=== PATIENT | female | born 1965 | race Caucasian/White ===

== ENCOUNTER → 2019-04-07 09:45 | Outpatient (BNVA) | payer OTHER, SELFPAY | PROVIDERS: Family Provider Family Medicine; PCP Family Medicine; Visit Provider Family Medicine | DX: Z01.419 Encounter for gynecological examination (general) (routine) without abnormal findings (principal); Z12.31 Encounter for screening mammogram for malignant neoplasm of breast | CPT/HCPCS: 88175 ==

== ENCOUNTER 2019-05-05 07:59 | Day surgery (SDC) | payer OTHER, SELFPAY ==
[2019-05-04 13:46] VITALS: BMI 18.8
[2019-05-05 08:28] VITALS: BP 117/76; PULSE 87; RESP 16; TEMP 37.2; O2SAT 100
--- NOTE | 2019-05-05 08:32 | ANES.PREANE2 ---
Pre-Anesthetic Assessment Pre-Anesthetic Assessment: Height/Weight: Height 1.55 m Weight 45.388 kg Temp Pulse Resp BP Pulse Ox 98.9 F 87 16 117/76 100 05/05/19 08:28 05/05/19 08:28 05/05/19 08:28 05/05/19 08:28 05/05/19 08:28 Preop Diagnosis: screening Proposed Procedure: Operation Date: 05/05/19 09:00 Proposed Procedures p Colonoscopy(Not Applicable) - Kevin Galaviz MD Was Beta Chava taken within 24 hours: N/A Last intake: Intake Last Liquid Date 05/04/19 Last Liquid Time 21:00 Last Solid Date 05/03/19 Last Solid Time 16:00 Last Intake: 21:00 Social: Social History: No alcohol and No tobacco Exam: Pre-Anes Outpt Exam: alert, oriented x 3, clear to auscultation bilaterally and regular rate & rhythm Airway: Submandibular: WNL Cervical ROM: WNL MP: 1 Pulmonary: Pulmonary: None reported CV/HEM: CV/HEM: None reported : : None reported Hepatic: Hepatic: None reported GI: GI: GERD Metabolic: Metabolic: None reported Comments: LMP 10 yrs ago Musc/skel: Musc/skel: None reported Neuropsych: Neuropsych: None reported Anesthetic Plan: ASA status: 2 Anesthesia: Anesthesia Evaluation and MAC Risk of > 500 ml blood loss (7ml/kg in children): No PFSH Anesthesia PFSH: Social History (Updated 04/27/19 @ 14:28 by LEIGHA Leslie) Smoking and tobacco status: never smoked Alcohol intake: never History of recent travel: No Data Anesthesia Cardiac Studies: No Data to Display
[2019-05-05] MEDS: sodium chloride 0.9% 1,000 ML 30 ML (08:33)
--- NOTE | 2019-05-05 09:02 | W.PM.OPSUD ---
Surgery/Procedure H&P Update DATE OF PROCEDURE: May 05, 2019 DATE H&P PERFORMED: 04/27/19 PREOP DIAGNOSIS: screening PLANNED PROCEDURE: Operation Date: 05/05/19 09:00 Proposed Procedures p Colonoscopy(Not Applicable) - Kevin Galaviz MD
[2019-05-05 09:28] VITALS: BP 101/70; PULSE 85; RESP 16; TEMP 37.2; O2SAT 99
[2019-05-05 09:37] VITALS: BP 102/67; PULSE 98; RESP 18; O2SAT 100
--- NOTE | 2019-05-05 09:39 | ANE.PACU2 ---
 Inpatient post-anesthesia follow up: Airway intact: Yes Vital signs: Temperature 98.9 F Pulse Rate 98 Respiratory Rate 18 Blood Pressure 102/67 Pulse Oximetry 100 Oxygen Delivery Me thod Room Air Oxygen Flow Rate 3 Fraction of Inspir ed Oxygen Hydration adequate: Yes Nausea and vomiting: No Pain level: 1 Mental status: Baseline
== END 2019-05-05 09:51 | disposition home or self-care (01) ==
PROVIDERS: Family Provider Family Medicine; PCP Family Medicine; Visit Provider Internal Medicine
PROC: 0DJD8ZZ Inspection of Lower Intestinal Tract, Via Natural or Artificial Opening Endoscopic (ICD-10-PCS; CPT 45378; principal; 2019-05-05 09:00)
DX: Z12.11 Encounter for screening for malignant neoplasm of colon (principal); K21.9 Gastro-esophageal reflux disease without esophagitis
CPT/HCPCS: 12345; 45378; J2704; J7030

== ENCOUNTER 2019-08-03 15:32 | Outpatient (CLI) | payer OTHER, SELFPAY ==
--- NOTE | 2019-08-03 15:30 | MM_ITS ---
WS: [id number] SCREENING DIGITAL MAMMOGRAM WITH CAD HISTORY: screening mammogram COMPARISON: 05/08/2016 and 04/04/2015 Bilateral CC and MLO views submitted. Computer aided detection analyzed. Breast composition: The breasts are heterogeneously dense, which may obscure small masses. Irregular asymmetry in the posterior lateral LEFT breast measures 15 mm. On the lateral projection this is prob ably in the upper portion of the breast. No additional asymmetries or distortion. LEFT breast: Spot compression views (CC and MLO). True ML. Ultrasound to follow if abnormality jacob westbrook MM/[id number] IMPRESSION: BI-RADS: 0-Incomplete: Need additional imaging evaluation FOLLOW UP: Need Additional Imaging
== END 2019-08-03 15:33 | disposition home or self-care (01) ==
PROVIDERS: PCP Family Medicine; Visit Provider Family Medicine
DX: Z12.31 Encounter for screening mammogram for malignant neoplasm of breast (principal)
CPT/HCPCS: 77067

== ENCOUNTER 2019-08-17 09:06 | Outpatient (CLI) | payer OTHER, SELFPAY ==
--- NOTE | 2019-08-17 09:30 | MM_ITS ---
WS: [id number] LEFT DIGITAL MAMMOGRAPHY WITH CAD CLINICAL INFORMATION: abnormal mamm COMPARISON: August 03, 2019 TECHNIQUE: 4 views of the left breast were obtained. FINDINGS: The left breast is composed of heterogeneous fibroglandular density tissue, which can limit the detec tion of small underlying mass lesions. Again seen is the irregular asymmetry in the posterior lateral left breast measuring 15 mm. This persists on spot compression views. Ultrasound is pending. ULTRASOUND BREAST LEFT TECHNIQUE: Ultrasound left breast focused area of concern. CLINICAL INFORMATION: abnormal mammo COMPARISON: None. FINDINGS: Ultrasound left breast obtained from the 12 to 2:00 position. Dense underlying breast tissue. No evid ence of cystic or solid lesion. No lesions to target for biopsy. Normal underlying breast tissue. MM/[id number] IMPRESSION: BI-RADS: 2-Benign FOLLOW UP: 1 Year Follow-up Recommend return to annual screening mammography.
--- NOTE | 2019-08-17 10:15 | US_ITS ---
WS: [id number] LEFT DIGITAL MAMMOGRAPHY WITH CAD CLINICAL INFORMATION: abnormal mamm COMPARISON: August 03, 2019 TECHNIQUE: 4 views of the left breast were obtained. FINDINGS: The left breast is composed of heterogeneous fibroglandular density tissue, which can limit the detec tion of small underlying mass lesions. Again seen is the irregular asymmetry in the posterior lateral left breast measuring 15 mm. This persists on spot compression views. Ultrasound is pending. ULTRASOUND BREAST LEFT TECHNIQUE: Ultrasound left breast focused area of concern. CLINICAL INFORMATION: abnormal mammo COMPARISON: None. FINDINGS: Ultrasound left breast obtained from the 12 to 2:00 position. Dense underlying breast tissue. No evid ence of cystic or solid lesion. No lesions to target for biopsy. Normal underlying breast tissue. US/US breast complete [id number] IMPRESSION: BI-RADS: 2-Benign FOLLOW UP: 1 Year Follow-up Recommend return to annual screening mammography.
== END 2019-08-17 09:07 | disposition home or self-care (01) ==
LOC: RADSHAW 09:09
PROVIDERS: PCP Family Medicine; Visit Provider Family Medicine
DX: R92.8 Other abnormal and inconclusive findings on diagnostic imaging of breast (principal)
CPT/HCPCS: 76641; 77065

== ENCOUNTER 2020-10-07 14:52 | Outpatient (CLI) | payer OTHER, SELFPAY ==
--- NOTE | 2020-10-07 14:58 | MM_ITS ---
WS: [id number] BILATERAL DIGITAL SCREENING MAMMOGRAPHY WITH CAD CLINICAL INFORMATION: SCREENING HISTORY: Screening mammogram. No current complaints. COMPARISON: 08/17/2019 and 08/03/2019 TECHNIQUE: Bilateral CC and MLO views. FINDINGS: The breasts are composed of heterogeneous fibroglandular density tissue, which can limit the detectio n of small underlying mass lesions. No suspicious mass, asymmetry, calcifications, or architectural d istortion. No evidence of malignancy. MM/[id number] IMPRESSION: BI-RADS: 1-Negative FOLLOW UP: 1 Year Follow-up Recommend return to annual screening mammography.
== END 2020-10-07 14:53 | disposition home or self-care (01) ==
LOC: RADSHAW 14:57
PROVIDERS: PCP Family Medicine; Visit Provider Family Medicine
DX: Z12.31 Encounter for screening mammogram for malignant neoplasm of breast (principal)
CPT/HCPCS: 77067

== ENCOUNTER → 2020-11-08 07:34 | Outpatient (BNVA) | payer OTHER, SELFPAY | PROVIDERS: PCP Family Medicine; Visit Provider Family Medicine | DX: Z01.419 Encounter for gynecological examination (general) (routine) without abnormal findings (principal); Z13.6 Encounter for screening for cardiovascular disorders | CPT/HCPCS: 80053; 80061; 85025 ==